=== PATIENT | female | born 1945 | race Caucasian/White ===

== ENCOUNTER 2016-10-02 04:17 | Inpatient (IN) | payer MEDICARE, OTHER ==
[2016-10-02] MEDS ORDERED: methylPREDNISolone NA SUCC 125 MG/2 ML VIAL IVPB ONE (04:45)
[2016-10-02] MEDS ORDERED: METOCLOPRAMIDE HCL INJECTION 10 MG/2 ML VIAL IVPB ONE (04:45)
--- NOTE | 2016-10-02 04:46 | PDOC ---
ED Treatment Course - LABORATORY CBC & Chemistry Diagram: 10/03/16 12:45 10/03/16 12:45 Medical Decision Making - Medical Decision Making 10/02/16 04:45 agree with care from [employer] [facility] [employer] Pool *DC/Admit/Observation/Transfer Diagnosis at time of Disposition: Flank pain, Hydronephrosis - Discharge Dispostion Disposition: HOME Condition at time of disposition: Fair - Prescriptions
[2016-10-02] MEDS ORDERED: methylPREDNISolone NA SUCC 125 MG/2 ML VIAL ONE (04:51)
[2016-10-02] MEDS ORDERED: METOCLOPRAMIDE HCL INJECTION 10 MG/2 ML VIAL ONE (04:51)
--- NOTE | 2016-10-02 04:53 | PDOC ---
[id number]: 10/02/16 04:34 History Source: Patient Exam Limitations: No Limitations - History of Present Illness Travel History: No Initial Comments: 10/02/16 04:49 71 yo Female patient presents to ED c/o abd pain, unable to sleep, nausea, weakness, fatigued x 2-3 weeks. Patient states she went to see Dr. Gallardo yesterday around 4pm and was instructed to come to ED at this time for evaluation of Crohn's. Patient reports she was diagnosed with Crohn's 2005. She also states she took 20 mg of prednisone last night but symptom continue. Denies any other complaints at this time. Timing/Duration: reports: getting worse, changing over time Quality: reports: mild Abdominal Pain Onset Location: reports: generalized abdomen Pain Radiation: reports: no radiation Activities at Onset: reports: no specific activity Treatment Prior to Arrive: improves with: analgesics Aggravating Factors: worse with: None, Defecation, Eating, Emotional upset, Exertion, [place], Movement, Voiding, Change in position Alleviating Factors: worse with: None, Belching, Shallow Breathing, Defecation, Eating, Holding Breath, Passing Gas, Change in Position, Rest, Voiding, Vomiting Past History - Travel Traveled outside of the country in the last 30 days: Yes Close contact w/someone who was outside of country & ill: No - Past Medical History Allergies/Adverse Reactions: Allergies Allergy/AdvReac Type Severity Reaction Status Date / Time codeine [Codeine] Allergy Difficulty Verified 10/02/16 04:48 Breathing morphine Allergy Verified 10/02/16 04:48 Home Medications: Ambulatory Orders Dexlansoprazole [Dexilant -] 60 mg PO DAILY 07/08/12 Mesalamine [Apriso] 0.375 gm PO DAILY 10/02/16 Metoclopramide HCl 5 mg PO TID 10/02/16 Lipase/Protease/Amylase [Rubio Jorge 36,000 Units Capsule] 1 each PO TIDCM #90 capsule. 10/05/16 Cancer: Yes GI Disorders: Yes (CROHNS) HTN: Yes - Surgical History Abdominal Surgery: Yes (INTESTINAL) Cardiac Surgery: Yes (PACEMAKER) - Psycho/Social/Smoking Cessation Hx Suicidal Ideation: No Smoking Status: No Smoking History: Never smoked Number of Cigarettes Smoked Daily: 0 Drug/Substance Use Hx: No Abd/GI Specific PMHX - Complaint Specific PMHX Colitis: No Diverticulitis: No Gall Bladder Disease: No GERD: No Hepatitis: No Irritable Bowel Synd (IBS): No Pancreatitis: No GI Ulcer Disease: No Review of Systems - Review of Systems Constitutional: No: Chills, Fever Respiratory: No: Cough, Orthopnea, Shortness of Breath, Stridor, Wheezing Cardiac (ROS): No: Chest Pain, Edema, Palpitations ABD/GI: Yes: Nausea, Other (Abdominal Pain). No: Constipated, Diarrhea, Poor Appetite, Poor Fluid Intake, Vomiting : No: Burning, Dysuria, Hematuria, Pain Musculoskeletal: No: Back Pain Integumentary: No: Bruising, Rash Neurological: No: Headache, Seizure, Ataxia, Dizziness Psychiatric: Yes: Change in Appetite. No: Stressors Hematologic/Lymphatic: No: Anemia, Blood Clots, Easy Bleeding, Easy Bruising All Other Systems: Reviewed and Negative *Physical Exam - Vital Signs Last Vital Signs Temp Pulse Resp BP Pulse Ox 98.7 F 78 20 162/89 99 10/02/16 04:43 10/02/16 04:43 10/02/16 04:43 10/02/16 04:43 10/02/16 04:43 - Physical Exam General Appearance: Yes: Nourished, Appropriately Dressed. No: Apparent Distress, Disheveled, Mild Distress, Moderate Distress, Severe Distress, Cachetic Neck: positive: Trachea midline, Supple Respiratory/Chest: positive: Lungs Clear, Normal Breath Sounds. negative: Respiratory Distress, Accessory Muscle Use, Labored Respiration, Rapid RR Cardiovascular: positive: Regular Rhythm, Regular Rate Gastrointestinal/Abdominal: positive: Normal Bowel Sounds, Soft. negative: Tender, Increased Bowel Sounds, Distended, Guarding, Rebound, Tenderness Lymphatic: negative: Adenopathy Musculoskeletal: positive: Normal Inspection. negative: CVA Tenderness Extremity: positive: Normal Capillary Refill, Normal Inspection, Normal Range of Motion Integumentary: positive: Normal Color, Warm Neurologic: positive: cargo checker II-XII NML intact, Fully Oriented, Alert, Normal Mood/ Affect, Normal Response, Motor Strength 5/5 ED Treatment Course - LABORATORY CBC & Chemistry Diagram: 10/03/16 12:45 10/03/16 12:45 - RADIOLOGY Radiology Studies Ordered: Category Date Time Status ABDOMEN & PELVIS CT WITH CONTR [CT] Stat CT Scan 10/02/16 04:45 Ordered *DC/Admit/Observation/Transfer Diagnosis at time of Disposition: Flank pain Hydronephrosis Qualifiers: Hydronephrosis type: with ureteropelvic junction obstruction Qualified Code(s) : Q62.0 - Congenital hydronephrosis - Discharge Dispostion Disposition: HOME Condition at time of disposition: Fair - Prescriptions
[2016-10-02] MEDS: SODIUM CHLORIDE 1,000 ML IV SCH ×3 (05:01→22:42)
[2016-10-02 05:24] LABS: BASOPHIL 0.4 % (0-2.0); EOSINOPHIL 0.1 % (0-4.5); MCH 29.5 pg (25.7-33.7); MEAN CELL VOLUME 89.3 fl (80-96); MEAN PLT VOLUME 8.2 fl (7.5-11.1); PLATELET COUNT 280 K/MM3 (134-434); RDW 13.8 % (11.6-15.6); WHITE BLOOD COUNT 6.9 K/mm3 (4.0-10.0)
[2016-10-02 05:43] LABS: AMYLASE 75 U/L (25-115); ANION GAP 10 (8-16); BILIRUBIN,TOTAL 0.2 mg/dL (0.2-1.0); CO2 24 mmol/L (21-32); CREATININE 0.7 mg/dL (0.55-1.02); GLUCOSE,RANDOM 130 mg/dL (74-106); SGOT/AST 23 U/L (15-37); SGPT/ALT 25 U/L (12-78); TOT PROT 7.3 g/dl (6.4-8.2)
[2016-10-02 05:44] LABS: ALK PHOS 96 U/L (45-117)
[2016-10-02 06:34] LABS: URINE APPEARANCE CLEAR; URINE BILIRUBIN NEGATIVE (NEGATIVE); URINE BLOOD NEGATIVE (NEGATIVE); URINE COLOR COLORLESS; URINE GLUCOSE (UA) NEGATIVE (NEGATIVE); URINE KETONE NEGATIVE (NEGATIVE); URINE LEUK ESTERASE NEGATIVE (NEGATIVE); URINE NITRITE NEGATIVE (NEGATIVE); URINE PROTEIN NEGATIVE (NEGATIVE); URINE UROBILINOGEN NEGATIVE E.U./dl (0.2-1.0)
--- NOTE | 2016-10-02 08:08 | PDOC ---
*Physical Exam - Vital Signs Last Vital Signs Temp Pulse Resp BP Pulse Ox 98.3 F 73 18 152/70 100 10/02/16 07:36 10/02/16 07:36 10/02/16 07:36 10/02/16 07:36 10/02/16 07:36 - Physical Exam General Appearance: Yes: Appropriately Dressed. No: Apparent Distress HEENT: positive: Normal Voice Neck: positive: Supple Respiratory/Chest: positive: Lungs Clear, Normal Breath Sounds. negative: Respiratory Distress Cardiovascular: positive: Regular Rate, S1, S2 Gastrointestinal/Abdominal: positive: Soft. negative: Tender Integumentary: positive: Dry, Warm Neurologic: positive: Fully Oriented, Alert, Normal Mood/Affect ED Treatment Course - LABORATORY CBC & Chemistry Diagram: 10/02/16 05:00 10/02/16 05:00 - ADDITIONAL ORDERS Additional order review: Laboratory Results 10/02/16 10/02/16 06:10 05:00 Sodium 140 Potassium 3.8 Chloride 106 Carbon Dioxide 24 Anion Gap 10 BUN 12 Creatinine 0.7 D Creat Clearance w eGFR > 60 Random Glucose 130 H D Calcium 9.0 Total Bilirubin 0.2 D AST 23 D ALT 25 D Alkaline Phosphatase 96 Total Protein 7.3 Albumin 4.0 Total Amylase 75 Lipase 165 Urine Color Colorless Urine Appearance Clear Urine pH 6.0 Ur Specific Hitchcock 1.003 Urine Protein Negative Urine Glucose (UA) Negative Urine Ketones Negative Urine Blood Negative Urine Nitrite Negative Urine Bilirubin Negative Urine Urobilinogen Negative Ur Leukocyte Esterase Negative 10/02/16 05:00 RBC 3.96 MCV 89.3 MCHC 33.0 RDW 13.8 MPV 8.2 Neutrophils % 69.0 D Lymphocytes % 26.0 D Monocytes % 4.5 Eosinophils % 0.1 D Basophils % 0.4 - Medications Given in the ED: ED Medications Discontinued Medications Generic Name Dose Route Start Last Admin Trade Name Freq PRN Reason Stop Dose Admin Methylprednisolone Sodium Succinate 125 mg 10/02/16 04:45 10/02/16 05:01 Solu-Medrol - IVPB 10/02/16 04:46 125 mg ONCE ONE Administration Metoclopramide HCl 10 mg 10/02/16 04:45 10/02/16 05:01 Reglan Injection - IVPB 10/02/16 04:46 10 mg ONCE ONE Administration Medical Decision Making - Medical Decision Making 10/02/16 07:51 Received signout at 7am 71-year-old female history of Crohn's disease on prednisone, presents with abdominal pain. Given IV Solu-Medrol here. Labs unremarkable. CT pending. Patient notes Dr. Fairbanks of GI 10/02/16 08:17 10/02/16 08:20 10/02/16 08:28 CT w/ peripelvic cyst w/ mild prominence of L ureter w/ ? distal urethral stone vfs recent passage of stone, no definate hydro, renal/bladder US recommended. On reassessment, pt report L flank/LUQ pain. Toradol in progress. Discuss dispo w/ Dr Fairbanks 10/02/16 09:[address] Fairbanks who recommended Dr. Steven Tesfaye be c/s on patient given possible stone. States overall, if patient is feeling better, can potentially be discharged. Jerome requesting callback with final disposition [phone] 10/02/16 11:44 Ultrasound read as "findings suggestive of a component of urinary retention w/ narrowing of the ureteropelvic junction with [id number] hydroureter, possibly due to mass effect from the parapelvic cyst". Also seen is small lower pole stone w/ recent stone passage on the L. Pt denies dysuria/retention/ hematuria w/ nl cr in ED. Will contact Dr Steven Tesfaye of as d/w Dr Fairbanks 10/02/16 12:37 Ultrasound findings discussed with Dr. Fairbanks who recommends patient be admitted to Dr. Lantigua especially since pt still symptomatic and now c/o dizziness. Aware that I am still trying to get in contact with 10/02/16 14:25 *DC/Admit/Observation/Transfer Diagnosis at time of Disposition: Flank pain Hydronephrosis Qualifiers: Hydronephrosis type: with ureteropelvic junction obstruction Qualified Code(s) : Q62.0 - Congenital hydronephrosis - Discharge Dispostion Condition at time of disposition: Fair Admit: Yes - Referrals
[2016-10-02] MEDS ORDERED: KETOROLAC TROMETHAMINE 30 MG/1 ML VIAL IVPUSH ONE (08:43)
[2016-10-02] MEDS ORDERED: SODIUM CHLORIDE 1,000 ML IV STA (08:44)
[2016-10-02] MEDS ORDERED: KETOROLAC TROMETHAMINE 15 MG/ML VIAL ONE (09:01)
[2016-10-02 17:33] VITALS: BMI 21.7
--- NOTE | 2016-10-02 18:18 | CONSULT ---
Consult Consult Specialty:: GI Referred by:: Dr Lantigua Reason for Consultation:: Fatigue and abdominal pain - History of Present Illness Chief Complaint: Fatigue and abdominal pain History of Present Illness: 71 F with h/o Crohns diagnosed in 2005 ([facility]) admitted with 2 weeks of abdominal pain and fatigue. She states she took prednisone 20 mg with no relief. She saw Dr Fairbanks yesterday and he sent her to the ER for further evaluation. She denies diarrhea, rectal bleeding. - History Source History Provided By: Patient Limitations to Obtaining History: No Limitations - Past Medical History ...: No - Alcohol/Substance Use Hx Alcohol Use: No - Smoking History Smoking history: Never smoked Have you smoked in the past 12 months: No Aproximately how many cigarettes per day: 0 Home Medications - Allergies Allergies/Adverse Reactions: Allergies Allergy/AdvReac Type Severity Reaction Status Date / Time codeine [Codeine] Allergy Difficulty Verified 10/02/16 04:48 Breathing morphine Allergy Verified 10/02/16 04:48 - Home Medications Home Medications: Ambulatory Orders Dexlansoprazole [Dexilant] 60 mg PO DAILY 07/08/12 Mesalamine [Apriso] 0.375 gm PO DAILY 10/02/16 Metoclopramide HCl 5 mg PO TID 10/02/16 Prednisone 10 mg PO TID 10/02/16 Physical Exam-GI Vital Signs: Vital Signs Temperature 98.4 F 10/02/16 17:10 Pulse Rate 97 H 10/02/16 17:10 Respiratory Rate 18 10/02/16 17:10 Blood Pressure 120/56 10/02/16 17:10 O2 Sat by Pulse Oximetry (%) 99 10/02/16 17:10 Constitutional: Yes: Well Nourished HENT: Yes: Normocephalic Neck: Yes: Supple Cardiovascular: Yes: Regular Rate and Rhythm Respiratory: Yes: CTA Bilaterally Gastrointestinal Inspection: Yes: WNL ...Palpate: Yes: Soft, Tenderness (LLQ) Labs: CBC, BMP 10/02/16 05:00 10/02/16 05:00 Hepatic Panel Total Bilirubin 0.2 mg/dL (0.2-1.0) D 10/02/16 05:00 AST 23 U/L (15-37) D 10/02/16 05:00 ALT 25 U/L (12-78) D 10/02/16 05:00 Alkaline Phosphatase 96 U/L (45-117) 10/02/16 05:00 Albumin 4.0 g/dl (3.4-5.0) 10/02/16 05:00 Imaging - Results Cat Scan: Report Reviewed (nephrolithiasis) Assessment/Plan 71 F with h/o Crohns on prednisone now with fatigue and mild generalized abdominal pain. Exam not impressive. Check ESR and CRP Start diet-she states all she eats is peanut butter, bread and eggs Will try to provide similar food
--- NOTE | 2016-10-02 19:00 | CONSULT ---
Consult Consult Specialty:: urology Referred by:: zofia Reason for Consultation:: left renal colic - History of Present Illness Chief Complaint: abdominal pain History of Present Illness: Patient with history of Crohn's Disease who has a history of abdominal pain with mild left flank pain. Patient with nausea and vomiting but is most likely due to GI source. Patient states that the left flank pain is minor. She denies gross hematuria. - History Source History Provided By: Patient Limitations to Obtaining History: No Limitations - Past Medical History ...: No - Alcohol/Substance Use Hx Alcohol Use: No - Smoking History Smoking history: Never smoked Have you smoked in the past 12 months: No Aproximately how many cigarettes per day: 0 Home Medications - Allergies Allergies/Adverse Reactions: Allergies Allergy/AdvReac Type Severity Reaction Status Date / Time codeine [Codeine] Allergy Difficulty Verified 10/02/16 04:48 Breathing morphine Allergy Verified 10/02/16 04:48 - Home Medications Home Medications: Ambulatory Orders Dexlansoprazole [Dexilant] 60 mg PO DAILY 07/08/12 Mesalamine [Apriso] 0.375 gm PO DAILY 10/02/16 Metoclopramide HCl 5 mg PO TID 10/02/16 Prednisone 10 mg PO TID 10/02/16 Physical Exam- Vital Signs: Vital Signs Temperature 98.4 F 10/02/16 17:10 Pulse Rate 97 H 10/02/16 17:10 Respiratory Rate 18 10/02/16 17:10 Blood Pressure 120/56 10/02/16 17:10 O2 Sat by Pulse Oximetry (%) 99 10/02/16 17:10 Constitutional: Yes: Well Nourished, No Distress, Calm Eyes: Yes: WNL, Conjunctiva Clear, EOM Intact HENT: Yes: Normocephalic Neck: Yes: WNL, Supple, Trachea Midline Cardiovascular: Yes: WNL, Regular Rate and Rhythm Respiratory: Yes: WNL, Regular Gastrointestinal: Yes: Soft (mild diffuse tenderness; no rebound or guarding; mild bilater CVAT) Kidneys: Yes: Tenderness External Genitalia: Yes: WNL Imaging - Results Cat Scan: Report Reviewed Assessment/Plan Impression Crohn's Disease Left UPJ obstruction Plan Observe UPJ which is longstanding.
[2016-10-03] MEDS: SODIUM CHLORIDE 1,000 ML IV SCH ×2 (09:02→23:30)
[2016-10-03 13:36] LABS: BASOPHIL 0.5 % (0-2.0); EOSINOPHIL 0.5 % (0-4.5); MCH 30.6 pg (25.7-33.7); MCHC 33.2 g/dl (32.0-36.0); MEAN CELL VOLUME 92.2 fl (80-96); NEUTROPHILS 48.2 % (42.8-82.8); PLATELET COUNT 244 K/MM3 (134-434); RDW 14.2 % (11.6-15.6); WHITE BLOOD COUNT 8.6 K/mm3 (4.0-10.0)
[2016-10-03 13:47] LABS: ALBUMIN 3.5 g/dl (3.4-5.0); ANION GAP 1 (8-16); CALCIUM 8.6 mg/dL (8.5-10.1); CO2 28 mmol/L (21-32); GLUCOSE,RANDOM 76 mg/dL (74-106)
[2016-10-03 14:02] LABS: ALK PHOS 69 U/L (45-117); BILIRUBIN,TOTAL 0.3 mg/dL (0.2-1.0); C-REACTIVE PROTEIN < 0.3 MG/DL (0.00-0.3); CREATININE 0.7 mg/dL (0.55-1.02); SGOT/AST 16 U/L (15-37); SGPT/ALT 20 U/L (12-78)
[2016-10-04] MEDS: SODIUM CHLORIDE 1,000 ML IV SCH ×3 (04:45→14:42)
--- NOTE | 2016-10-04 15:14 | PN ---
GI Progress Note Subjective: Patient resting comfortably. Diarrhea has resolved. No abdominal pain but (+) bloating. - Objective Vital Signs: Vital Signs Temperature 98.5 F 10/04/16 14:17 Pulse Rate 76 10/04/16 14:17 Respiratory Rate 20 10/04/16 08:00 Blood Pressure 141/66 10/04/16 14:17 O2 Sat by Pulse Oximetry (%) 96 10/04/16 08:00 Constitutional: Well Nourished, No Distress HENT: Yes: Normocephalic Neck: Yes: Supple Cardiovascular: Yes: Regular Rate and Rhythm Respiratory: Yes: CTA Bilaterally Gastrointestinal Inspection: Yes: WNL ...Auscultate: Yes: Normoactive Bowel Sounds ...Palpate: Yes: Soft. No: Tenderness Labs: CBC, BMP 10/03/16 12:45 10/03/16 12:45 - ....Imaging Cat Scan: Report Reviewed (no evidence of crohns) Assessment/Plan 71 F with h/o Crohns on prednisone now with fatigue and mild generalized abdominal pain. Exam not impressive. ESR normal Tolerating diet (peanut butter, bread and eggs) No need for steroids as no evidence of active Crohns at this time Can d/c from GI pov
[2016-10-05] MEDS: SODIUM CHLORIDE 1,000 ML IV SCH ×2 (00:10→06:17)
--- NOTE | 2016-10-05 07:42 | HP ---
Admitting History and Physical - Primary Care Physician PCP: Lalo Lantigua - Admission Chief Complaint: abdominal pain, diarrhea x2-3 days History of Present Illness: was sent in by with c/o diarrhea and worsening abdominal pain with nausea and vomiting to evaluate for active Crohn's. CT abd reviewed, US reviewed was seen by GI and . pt has been on iv fluids, no steroid was given after ER admission. currently feels better, no diarrhea, no vomiting, no nausea. tolerating diet. CT shows no acute inflammation, chronic renal cyst. ESR/CRP within normal. Medically stable to go home with close outpt f/up. (Of note our service was not notified of admission, and was accidentally found admission on computer.) History Source: Patient Limitations to Obtaining History: No Limitations - Past Medical History Cardiovascular: Yes: HTN, Other (PPM for complete heart block) ...: No Rheumatology: Yes: Other (osteoarthritis) - Past Surgical History Past Surgical History: Yes: Hysterectomy (BSO), Permanent Pacemaker, Tonsillectomy Additional Past Surgical History: lumbar surgery intestinal resection for Crohn's/obstruction 2012 - Advance Directives Advance Directives: Yes: Health Care Proxy - Smoking History Smoking history: Never smoked Have you smoked in the past 12 months: No Aproximately how many cigarettes per day: 0 - Alcohol/Substance Use Hx Alcohol Use: No - Social History Usual Living Arrangement: Yes: Alone ADL: Independent History of Recent Travel: No Home Medications - Allergies Allergies/Adverse Reactions: Allergies Allergy/AdvReac Type Severity Reaction Status Date / Time codeine [Codeine] Allergy Difficulty Verified 10/02/16 04:48 Breathing morphine Allergy Verified 10/02/16 04:48 - Home Medications Home Medications: Ambulatory Orders Dexlansoprazole [Dexilant] 60 mg PO DAILY 07/08/12 Mesalamine [Apriso] 0.375 gm PO DAILY 10/02/16 Metoclopramide HCl 5 mg PO TID 10/02/16 Prednisone 10 mg PO TID 10/02/16 Review of Systems - Review of Systems Constitutional: reports: Loss of Appetite Eyes: denies: No Symptoms HENT: denies: No Symptoms Neck: denies: No Symptoms Cardiovascular: denies: No Symptoms Respiratory: denies: No Symptoms Gastrointestinal: reports: Abdominal Pain, Bloating. denies: Diarrhea, Nausea, Vomiting Genitourinary: denies: No Symptoms Musculoskeletal: reports: Back Pain Psychiatric: denies: No Symptoms Physical Examination Vital Signs: Vital Signs Temperature 97.8 F 10/05/16 05:30 Pulse Rate 76 10/05/16 05:30 Respiratory Rate 16 10/05/16 05:30 Blood Pressure 116/56 10/05/16 05:30 O2 Sat by Pulse Oximetry (%) 96 10/04/16 08:00 Constitutional: Yes: Well Nourished, No Distress, Calm Eyes: Yes: EOM Intact HENT: Yes: Normocephalic Neck: Yes: Trachea Midline Cardiovascular: Yes: Regular Rate and Rhythm Respiratory: Yes: CTA Bilaterally Gastrointestinal: Yes: Normal Bowel Sounds, Soft. No: Tenderness, Rebound Renal/: Yes: WNL. No: CVA Tenderness - Left, CVA Tenderness - Right Extremities: Yes: WNL Edema: No Peripheral Pulses WNL: Yes Neurological: Yes: WNL ...Motor Strength: WNL Labs: CBC, BMP 10/03/16 12:45 10/03/16 12:45 Imaging - Results Cat Scan: Report Reviewed Ultrasound: Report Reviewed Problem List - Problems (1) Crohns disease Code(s): K50.90 - CROHN'S DISEASE, UNSPECIFIED, WITHOUT COMPLICATIONS Qualifiers: Digestive disease complication type: without complication (2) Diarrhea Code(s): R19.7 - DIARRHEA, UNSPECIFIED Qualifiers: Diarrhea type: unspecified type Qualified Code(s): R19.7 - Diarrhea , unspecified (3) Abdominal pain Code(s): R10.9 - UNSPECIFIED ABDOMINAL PAIN Qualifiers: Abdominal location: generalized Qualified Code(s): R10.84 - Generalized abdominal pain Assessment/Plan Feels better, medically stable to dc home with oupt GI f/up renal findings d/w pt, she has had long history of parapelvic cyst anwill follow up as outpt add creon to improve digestive issues as d/w
[2016-10-05] MEDS ORDERED: PATIENT'S OWN MEDICATION (NON-FORMULARY) (Mesalamine [Apriso] 0.375 GM) PO SCH (10:00)
[2016-10-05] MEDS: LIPASE/PROTEASE/AMYLASE 6,000 UNIT CAPSULE PO SCH ×2 (10:16→10:39)
[2016-10-05] MEDS: PANTOPRAZOLE 40 MG TABLET (FP) PO SCH ×2 (10:16→10:40)
[2016-10-05 10:45] VITALS: BP 126/72; PULSE 73; TEMP 98.1
[2016-10-05] MEDS ORDERED: METOCLOPRAMIDE HCL 10 MG TABLET (FP) PO SCH (14:00)
--- NOTE | 2016-10-23 08:52 | DS ---
Physical Examination Vital Signs: Vital Signs Temperature 98.1 F 10/05/16 08:00 Pulse Rate 73 10/05/16 08:00 Respiratory Rate 20 10/05/16 08:00 Blood Pressure 126/72 10/05/16 08:00 O2 Sat by Pulse Oximetry (%) 96 10/05/16 08:00 Labs: CBC, BMP 10/03/16 12:45 10/03/16 12:45 Discharge Summary Reason For Visit: FLANK PAIN,HYDRONEPHROSIS Hospital Course: was sent in by with c/o diarrhea and worsening abdominal pain with nausea and vomiting to evaluate for active Crohn's. CT abd reviewed, US reviewed was seen by GI and . pt has been on iv fluids, no steroid was given after ER admission. currently feels better, no diarrhea, no vomiting, no nausea. tolerating diet. CT shows no acute inflammation, chronic renal cyst. ESR/CRP within normal. Medically stable to go home with close outpt f/up. Condition: Fair - Instructions Diet, Activity, Other Instructions: FOLLOW UP WITH GI DR FAIRBANKS IN 1 WEEK FOLLOW UP WITH YOUR PMD DR LIANG Referrals: Benjamin Fairbanks MD [Primary Care Provider] - Disposition: HOME - Home Medications Comprehensive Discharge Medication List: Ambulatory Orders Dexlansoprazole [Dexilant -] 60 mg PO DAILY 07/08/12 Mesalamine [Apriso] 0.375 gm PO DAILY 10/02/16 Metoclopramide HCl 5 mg PO TID 10/02/16 Lipase/Protease/Amylase [Rubio Jorge 36,000 Units Capsule] 1 each PO TIDCM #90 capsule. 10/05/16
== END 2016-10-05 11:58 | disposition home or self-care (01) | DRG 392 ==
LOC: JER 04:17 → JERBED 12:43 → J6S 15:30
PROVIDERS: ADMIT Internal Medicine; ATTEND Internal Medicine
DX: R10.84 Generalized abdominal pain (principal); K50.90 Crohn's disease, unspecified, without complications; N13.39 Other hydronephrosis; R19.7 Diarrhea, unspecified; N94.89 Other specified conditions associated with female genital organs and menstrual cycle; N20.0 Calculus of kidney
CPT/HCPCS: 36415; 74176-TC; 76775-TC; 76856-TC; 80053; 81003; 82150; 83690; 85025; 85651; 86140; 99283-25

== ENCOUNTER 2017-06-28 07:31 | Day surgery (SDC) | payer MEDICARE, OTHER ==
[2017-06-28] MEDS ORDERED: IRON SUCROSE INJECTION 100 MG in SODIUM CHLORIDE 100 ML IVPB ONE (08:00)
[2017-06-28 17:26] VITALS: BP 136/64; PULSE 77; TEMP 98.8
== END 2017-06-28 15:00 | disposition home or self-care (01) ==
LOC: JONCNONCHE 07:31 → J7W 13:40 → JONCNONCHE 15:00
PROVIDERS: ATTEND Internal Medicine Hematology & Oncology
PROC: 3E033GC Introduction of Other Therapeutic Substance into Peripheral Vein, Percutaneous Approach (ICD-10-PCS; principal; 2017-06-28)
DX: D50.9 Iron deficiency anemia, unspecified (principal)
CPT/HCPCS: 96365; J1756

== ENCOUNTER 2017-12-31 07:32 | Day surgery (SDC) | payer MEDICARE, OTHER ==
[2017-12-31] MEDS ORDERED: IRON SUCROSE INJECTION 200 MG in SODIUM CHLORIDE 100 ML IVPB ONE (09:00)
[2017-12-31 10:43] VITALS: BP 117/67; PULSE 85; TEMP 97.1
== END 2017-12-31 10:44 | disposition home or self-care (01) ==
LOC: JONCNONCHE 07:32 → J7W 09:22 → JONCNONCHE 10:44
PROVIDERS: ATTEND Internal Medicine Hematology & Oncology
PROC: 3E033GC Introduction of Other Therapeutic Substance into Peripheral Vein, Percutaneous Approach (ICD-10-PCS; principal; 2017-12-31)
DX: D50.9 Iron deficiency anemia, unspecified (principal)
CPT/HCPCS: 96365; J1756

== ENCOUNTER 2018-06-23 07:35 | Day surgery (SDC) | payer MEDICARE, OTHER ==
[2018-06-23] MEDS ORDERED: IRON SUCROSE INJECTION 200 MG in SODIUM CHLORIDE 100 ML IVPB ONE (10:00)
[2018-06-23 16:37] VITALS: BP 120/59; PULSE 76; TEMP 98.1
== END 2018-06-23 10:35 | disposition home or self-care (01) ==
LOC: JONCNONCHE 07:35 → J7W 09:12 → JONCNONCHE 10:35
PROVIDERS: ATTEND Internal Medicine Hematology & Oncology
PROC: 3E033GC Introduction of Other Therapeutic Substance into Peripheral Vein, Percutaneous Approach (ICD-10-PCS; principal; 2018-06-23)
DX: D50.9 Iron deficiency anemia, unspecified (principal)
CPT/HCPCS: 96365; J1756

== ENCOUNTER 2018-11-08 05:40 | Day surgery (SDC) | payer MEDICARE, OTHER ==
[2018-11-08] MEDS ORDERED: IRON SUCROSE INJECTION 200 MG in SODIUM CHLORIDE 100 ML IVPB ONE (12:00)
[2018-11-08 16:32] VITALS: TEMP 98.1
[2018-11-08 16:33] VITALS: BP 132/89; PULSE 89
== END 2018-11-08 15:45 | disposition home or self-care (01) ==
LOC: JONCNONCHE 05:40 → JONCCHEMO 05:40 → J7W 08:35 → JONCNONCHE 15:45
PROVIDERS: ATTEND Internal Medicine Hematology & Oncology
DX: D50.9 Iron deficiency anemia, unspecified (principal)
CPT/HCPCS: 96365; J1756

== ENCOUNTER 2018-11-15 07:17 | Day surgery (SDC) | payer MEDICARE, OTHER ==
[2018-11-15] MEDS ORDERED: IRON SUCROSE INJECTION 200 MG in SODIUM CHLORIDE 100 ML IVPB ONE (09:00)
[2018-11-15 15:54] VITALS: TEMP 98.3
[2018-11-15 15:55] VITALS: BP 145/53; PULSE 82
== END 2018-11-15 14:15 | disposition home or self-care (01) ==
LOC: JONCNONCHE 07:17 → J7W 13:17 → JONCNONCHE 14:15
PROVIDERS: ATTEND Internal Medicine Hematology & Oncology
PROC: 3E033GC Introduction of Other Therapeutic Substance into Peripheral Vein, Percutaneous Approach (ICD-10-PCS; principal; 2018-11-15)
DX: D50.9 Iron deficiency anemia, unspecified (principal)
CPT/HCPCS: 96365; J1756

== ENCOUNTER 2018-11-22 07:07 | Day surgery (SDC) | payer MEDICARE, OTHER ==
[2018-11-22] MEDS ORDERED: IRON SUCROSE INJECTION 200 MG in SODIUM CHLORIDE 100 ML IVPB ONE (12:00)
[2018-11-22 16:35] VITALS: TEMP 98.2
[2018-11-22 16:36] VITALS: BP 128/66; PULSE 74
== END 2018-11-22 14:44 | disposition home or self-care (01) ==
LOC: JONCCHEMO 07:07 → JONCNONCHE 07:07 → J7W 13:26 → JONCNONCHE 14:44
PROVIDERS: ATTEND Internal Medicine Hematology & Oncology
PROC: 3E033GC Introduction of Other Therapeutic Substance into Peripheral Vein, Percutaneous Approach (ICD-10-PCS; principal; 2018-11-22)
DX: D50.9 Iron deficiency anemia, unspecified (principal)
CPT/HCPCS: 96365; J1756

== ENCOUNTER 2018-11-28 07:16 | Day surgery (SDC) | payer MEDICARE, OTHER ==
[2018-11-25 10:03] VITALS: BMI 20.9
[2018-11-28] MEDS ORDERED: MIDAZOLAM HCL 2 MG/2 ML SINGLE DOSE VIAL ONE (08:56)
[2018-11-28] MEDS ORDERED: PROPOFOL 20 ML ONE (09:01)
[2018-11-28] MEDS ORDERED: SUCCINYLCHOLINE CHLORIDE 200 MG/10 ML VIAL ONE (09:01)
[2018-11-28] MEDS ORDERED: IOHEXOL 300 MG/ML INFUS..BTL IV ONE (09:11)
[2018-11-28] MEDS ORDERED: ONDANSETRON 4 MG/2 ML VIAL IVPUSH PRN (09:43)
[2018-11-28] MEDS ORDERED: LACTATED RINGERS SOLUTION 1,000 ML IV SCH (09:45)
--- NOTE | 2018-11-28 10:11 | OP ---
Operative Note - Note: Operative Date: 11/28/18 Pre-Operative Diagnosis: left hydronephrosis with obstruction Operation: cystoscopy/left retrograde pyelogram/left ureteroscopy Findings: no evidence of ureteral stone/mild left upj obstruction with parapelvic cysts Post-Operative Diagnosis: Same as Pre-op Surgeon: Junior Chatterjee Anesthesia: General Operative Report Dictated: Yes
[2018-11-28 11:08] VITALS: TEMP 97.3
[2018-11-28 11:28] VITALS: BP 112/59; PULSE 81
--- NOTE | 2018-11-29 07:17 | OP ---
DATE OF OPERATION: 11/28/2018 PREOPERATIVE DIAGNOSIS: Left hydronephrosis with obstruction. POSTOPERATIVE DIAGNOSIS: Mild left ureteropelvic junction obstruction and multiple parapelvic cysts of the left kidney. PROCEDURE: Cystoscopy, left retrograde pyelogram, left ureteroscopy. ATTENDING: Ajay Mckinney MD ANESTHESIA: General. OPERATION WAS FOLLOWS: The patient has a history of a hydronephrosis on the left side with a renal scan indicative of left obstruction. Patient has a question of a stone in the ureter. Patient understands all risks and benefits of the procedure. She was brought into the operating room, placed in supine position on the operating room table. Preoperative antibiotics and anesthesia were administered. Patient was then placed in the dorsal lithotomy position. She was prepped and draped in the usual sterile manner. Cystoscopy was performed. Then, 2+ bladder trabeculations were noted. No evidence of neoplasm or stones within the bladder were noted. A retrograde pyelogram was performed which showed distorted left pyelocaliceal cysts of the left kidney consistent with the parapelvic cysts. A mild ureteropelvic junction obstruction was noted. There was a filling defect in the distal left ureter. Ureteroscopy was performed of the distal left ureter. No evidence of stone or neoplasm was noted. No stent was left in place. The patient tolerated the procedure very well. There were no complications noted. The disposition of the patient was to the recovery room. AJAY MCKINNEY M.D. [id number]
== END 2018-11-28 11:30 | disposition home or self-care (01) ==
LOC: JASU-SURG 07:16
PROVIDERS: ATTEND Urology
PROC: BT1FYZZ Fluoroscopy of Left Kidney, Ureter and Bladder using Other Contrast (ICD-10-PCS; principal; 2018-11-28 09:00)
DX: N13.39 Other hydronephrosis (principal); N28.1 Cyst of kidney, acquired; N32.89 Other specified disorders of bladder
CPT/HCPCS: 76000-TC-FY; 94760

== ENCOUNTER 2018-12-06 08:31 | Day surgery (SDC) | payer MEDICARE, OTHER ==
[2018-12-06] MEDS ORDERED: IRON SUCROSE INJECTION 200 MG in SODIUM CHLORIDE 100 ML IVPB ONE (10:00)
[2018-12-06 15:23] VITALS: BP 130/70; PULSE 77; TEMP 97.9
== END 2018-12-06 11:30 | disposition home or self-care (01) ==
LOC: JONCNONCHE 08:31 → J7W 11:32
PROVIDERS: ATTEND Internal Medicine Hematology & Oncology
PROC: 3E033GC Introduction of Other Therapeutic Substance into Peripheral Vein, Percutaneous Approach (ICD-10-PCS; principal; 2018-12-06)
DX: D50.9 Iron deficiency anemia, unspecified (principal)
CPT/HCPCS: 96365; J1756

== ENCOUNTER 2018-12-13 07:06 | Day surgery (SDC) | payer MEDICARE, OTHER ==
[2018-12-13] MEDS ORDERED: IRON SUCROSE INJECTION 200 MG in SODIUM CHLORIDE 100 ML IVPB ONE (10:00)
[2018-12-13 16:03] VITALS: TEMP 98.3
[2018-12-13 16:07] VITALS: BP 129/57; PULSE 74
== END 2018-12-13 14:20 | disposition home or self-care (01) ==
LOC: JONCCHEMO 07:06 → JONCNONCHE 07:06 → J7W 13:18 → JONCNONCHE 14:20
PROVIDERS: ATTEND Internal Medicine Hematology & Oncology
PROC: 3E033GC Introduction of Other Therapeutic Substance into Peripheral Vein, Percutaneous Approach (ICD-10-PCS; principal; 2018-12-13)
DX: D50.9 Iron deficiency anemia, unspecified (principal)
CPT/HCPCS: 96365; J1756

== ENCOUNTER → 2019-03-06 | Day surgery (SDC) | payer MEDICARE, OTHER | LOC: JONCNONCHE 06:19 ==

== ENCOUNTER 2019-03-10 06:41 | Day surgery (SDC) | payer MEDICARE, OTHER ==
[2019-03-10] MEDS ORDERED: IRON SUCROSE INJECTION 200 MG in SODIUM CHLORIDE 100 ML IVPB ONE (09:45)
[2019-03-10 13:52] VITALS: BP 142/70; PULSE 90; TEMP 98
== END 2019-03-10 11:20 | disposition home or self-care (01) ==
LOC: JONCNONCHE 06:41 → J7W 09:37 → JONCNONCHE 11:20
PROVIDERS: ATTEND Internal Medicine Hematology & Oncology
PROC: 3E033GC Introduction of Other Therapeutic Substance into Peripheral Vein, Percutaneous Approach (ICD-10-PCS; principal; 2019-03-10)
DX: D50.9 Iron deficiency anemia, unspecified (principal)
CPT/HCPCS: 96365; J1756

== ENCOUNTER 2020-06-01 13:19 | Emergency (ER) | payer MEDICARE, OTHER ==
[2020-06-01 13:31] VITALS: BMI 20.8
--- NOTE | 2020-06-01 14:17 | PDOC ---
Attending Attestation - Resident Resident Name: Gage Manzo - HPI HPI: 06/01/20 16:26 Pt presents to the ED complaining of a 5 day history of diarrhea and intermittent abdominal pain. Denies fever, nausea or vomiting. Patient has a history of Chron's disease. States that her Chron's is usually controlled with medication prescribed by Dr. Fairbanks, but today, these medications did not help her. Patient reports no diarrhea today, although she states that she has not eaten for two days. 06/01/20 17:02 - Physicial Exam PE: 06/01/20 16:41 Agree with resident exam. Patient is alert and oriented and in no acute distress. Abdomen is soft, non tender, non distended, without guarding or rebound. Agree with resident exam. Patient is alert and oriented and in no acute distress. Abdomen is soft, non distended with mild diffuse tenderness without guarding or rebound. 06/01/20 17:00 06/10/20 07:28 - Medical Decision Making 06/01/20 17:01 Pt presents to the ED complaining of abdominal pain and profuse diarrhea. Differential includes chron's flare, infectious diarrhea, less likely abscess, diverticulitis, intestinal obstruction. Will check labs and CT abdomen, reassess. 06/01/20 17:02 Discharge - Discharge Information Problems reviewed: Yes Clinical Impression/Diagnosis: Abdominal pain Qualifiers: Abdominal location: generalized Qualified Code(s): R10.84 - Generalized abdominal pain Disposition: HOME - Follow up/Referral Referrals: Lalo Lantigua MD [Primary Care Provider] - Pavel Goodman MD [Staff Physician] - - Patient Discharge Instructions Patient Printed Discharge Instructions: DI for Crohns Disease Flare Additional Instructions: You came to the ED today because of abdominal pain, distention, and diarrhea. All of your labs came back ok. Your CT scan also came back fine. Follow-up with Dr. Fairbanks on Wednesday. Please return to the ED if you have any new or concerning symptoms. Return to the ED if you develop a fever, or have persistent vomiting. - Post Discharge Activity
--- NOTE | 2020-06-01 14:33 | PDOC ---
History of Present Illness - General Chief Complaint: Pain, Acute Stated Complaint: ABD PAIN Time Seen by Provider: 06/01/20 14:14 History Source: Patient Exam Limitations: No Limitations - History of Present Illness Initial Comments: 06/01/20 16:59 75F [facility] crohns sent to ED by Dr. Fairbanks for evaluation of 3 days of diarrhea, colicky abdominal pain, nausea, and bloating. Pt states she had several episodes of nonbloody watery diarrhea on 05/29/20 followed by days of bloating, colicky pain, and nausea. Has been PO tolerant. Denies fevers/chills. Prior abdominal surgery for crohns flare up? Has a cough she attributes to environmental allergies. Past History - Medical History Allergies/Adverse Reactions: Allergies Allergy/AdvReac Type Severity Reaction Status Date / Time codeine [Codeine] Allergy Difficulty Verified 06/01/20 13:23 Breathing morphine Allergy Verified 06/01/20 13:23 amoxicillin AdvReac Verified 06/01/20 13:23 iv contrast AdvReac Rash Uncoded 06/01/20 13:23 Home Medications: Ambulatory Orders Dexlansoprazole [Dexilant -] 60 mg PO DAILY 07/08/12 Alprazolam [Xanax] 1 mg PO PRN 11/25/18 Azathioprine [Azasan] 75 mg PO DAILY 06/01/20 Anemia: Yes Asthma: No Cancer: Yes Cardiac Disorders: Yes (pacemarker) CVA: No COPD: No CHF: No Dementia: No Diabetes: No GI Disorders: Yes (CROHNS) Disorders: No HTN: Yes Hypercholesterolemia: No Liver Disease: No Seizures: No Thyroid Disease: No - Surgical History Abdominal Surgery: Yes (INTESTINAL) Appendectomy: No Cardiac Surgery: Yes (PACEMAKER) Cholecystectomy: No Lung Surgery: No Neurologic Surgery: No Orthopedic Surgery: Yes (L knee) - Psycho-Social/Smoking History Smoking Status: No Smoking History: Unknown if ever smoked Have you smoked in the past 12 months: No Number of Cigarettes Smoked Daily: 0 - Substance Abuse Hx (Audit-C & DAST Scrn) How often the patient has a drink containing alcohol: Never Score: In Men: 4 or > Positive; In Women: 3 or > Positive: 0 Screen Result (Pos requires Nsg. Audit-10AR): Negative In the last yr the pt used illegal drug/Rx for NonMed reason: No Score: Yes response is considered Positive: 0 Screen Result (Positive result requires Nsg. DAST-10): Negative Review of Systems - Review of Systems Comments:: CONSTITUTIONAL: Denies F / C HEENT: Denies headache, lightheadedness, dizziness, changes in vision / hearing, diplopia, blurry vision, sore throat, rhinorrhea RESP: Denies SOB, cough, orthopnea, PERAZA CARD: Denies chest pain, palpitations GI: Denies N / V / D, abdominal pain, bloody stool, inability to tolerate PO : Denies dysuria, hematuria, frequency NEURO: Denies numbness, tingling, weakness MSK: Denies back pain SKIN: Denies rashes *Physical Exam - Vital Signs Last Vital Signs Temp Pulse Resp BP Pulse Ox 84 18 146/80 100 06/01/20 13:26 06/01/20 13:26 06/01/20 13:26 06/01/20 13:26 - Physical Exam GEN: Well appearing, NAD, comfortable. AAOx3. HEENT: NC/AT, EOMI, PERRL. No facial asymmetry. Normal voice. Supple neck w/ FROM. CV: S1/S2, RRR, no m/r/g LUNG: CTAB, no wheezes, crackles, rales, rhonchi. GI: Soft, nontender, mild distention, +BS, no guarding, no rebound MSK: No obvious deformities of all extremities. SKIN: Warm, dry, no rashes appreciated. PSYCH: Normal mood and affect. NEURO: Moving all extremities well. ED Treatment Course - LABORATORY CBC & Chemistry Diagram: 06/01/20 15:20 06/01/20 15:20 Medical Decision Making - Medical Decision Making 75F w/ diarrhea followed by bloating, colicky pain, and nausea. well appearing w/ benign exam. Will eval for colitis, abscess - cbc, cmp - CT A/P 06/01/20 19:00 labs reviewed and reassuring pending CT read Pt signed out to PM team for further management and dispo Discharge - Discharge Information Problems reviewed: Yes Clinical Impression/Diagnosis: Abdominal pain Qualifiers: Abdominal location: generalized Qualified Code(s): R10.84 - Generalized abdominal pain Disposition: HOME - Follow up/Referral Referrals: Lalo Lantigua MD [Primary Care Provider] - Pavel Goodman MD [Staff Physician] - - Patient Discharge Instructions Patient Printed Discharge Instructions: DI for Crohns Disease Flare Additional Instructions: You came to the ED today because of abdominal pain, distention, and diarrhea. All of your labs came back ok. Your CT scan also came back fine. Follow-up with Dr. Fairbanks on Wednesday. Please return to the ED if you have any new or concerning symptoms. Return to the ED if you develop a fever, or have persistent vomiting. - Post Discharge Activity
[2020-06-01 15:57] LABS: BASO % 0.7 % (0-2.0); EOS % 0.9 % (0-4.5); HEMATOCRIT 35.7 % (32.4-45.2); LYMPH % 32.9 % (8-40); MCH 30.6 pg (25.7-33.7); MCHC 33.6 g/dl (32.0-36.0); MEAN CELL VOLUME 91.3 fl (80-96); MEAN PLT VOLUME 7.9 fl (7.5-11.1); MONO % 7.1 % (3.8-10.2); NEUT % 58.4 % (42.8-82.8); PLATELET COUNT 209 K/MM3 (134-434); RBC 3.91 M/mm3 (3.60-5.2); RDW 13.7 % (11.6-15.6); WHITE BLOOD COUNT 5.4 K/mm3 (4.0-10.0)
[2020-06-01 16:24] LABS: ALBUMIN 3.8 g/dl (3.4-5.0); BILIRUBIN,TOTAL 0.3 mg/dL (0.2-1); BLOOD UREA NITROGEN 12.4 mg/dL (7-18); CALCIUM 8.9 mg/dL (8.5-10.1); CREATININE 0.8 mg/dL (0.55-1.3); POTASSIUM 3.9 mmol/L (3.5-5.1); TOT PROT 7.1 g/dl (6.4-8.2)
[2020-06-01 18:32] VITALS: BP 119/45; PULSE 69
--- NOTE | 2020-06-01 19:30 | PDOC ---
*Physical Exam - Vital Signs Last Vital Signs Temp Pulse Resp BP Pulse Ox 69 20 119/45 L 99 06/01/20 18:31 06/01/20 18:31 06/01/20 18:31 06/01/20 18:31 ED Treatment Course - LABORATORY CBC & Chemistry Diagram: 06/01/20 15:20 06/01/20 15:20 - ADDITIONAL ORDERS Additional order review: Laboratory Results 06/01/20 15:20 Sodium 139 Potassium 3.9 Chloride 104 Carbon Dioxide 29 Anion Gap 7 L BUN 12.4 Creatinine 0.8 Est GFR (CKD-EPI)AfAm 82.42 Est GFR (CKD-EPI)NonAf 71.11 Random Glucose 90 Calcium 8.9 Total Bilirubin 0.3 AST 30 ALT 26 Alkaline Phosphatase 121 H Total Protein 7.1 Albumin 3.8 06/01/20 15:20 RBC 3.91 MCV 91.3 MCHC 33.6 RDW 13.7 MPV 7.9 Neutrophils % 58.4 Lymphocytes % 32.9 Monocytes % 7.1 Eosinophils % 0.9 Basophils % 0.7 Medical Decision Making - Medical Decision Making 06/01/20 19:27 Patient signed out to me 75 y/o female with a hax of Crohns complaining of diarrhea on Wednesday, none since. She has had residual abdominal cramping, bloating and nausea. She states this is the same as her normal crohns flare-ups. Dr. Fairbanks tried a few medications for flare-ups without improvement and wanted her to come in to be checked for infectious colitis. 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 - Will d/c will follow up and return precautions Discharge - Discharge Information Problems reviewed: Yes Clinical Impression/Diagnosis: Abdominal pain Qualifiers: Abdominal location: generalized Qualified Code(s): R10.84 - Generalized abdominal pain Disposition: HOME - Admission No - Follow up/Referral Referrals: Lalo Lanitgua MD [Primary Care Provider] - Pavel Goodman MD [Staff Physician] - - Patient Discharge Instructions Patient Printed Discharge Instructions: DI for Crohns Disease Flare Additional Instructions: You came to the ED today because of abdominal pain, distention, and diarrhea. All of your labs came back ok. Your CT scan also came back fine. Follow-up with Dr. Fairbanks on Wednesday. Please return to the ED if you have any new or concerning symptoms. Return to the ED if you develop a fever, or have persistent vomiting. - Post Discharge Activity
== END 2020-06-01 20:06 | disposition home or self-care (01) ==
LOC: JER 13:19
DX: R10.84 Generalized abdominal pain (principal)
CPT/HCPCS: 36415; 74176-TC; 80053; 85025; 99285-25

== ENCOUNTER 2021-12-12 15:34 | Emergency (ER) | payer MEDICARE, OTHER ==
[2021-12-12 15:53] VITALS: TEMP 97.6; BMI 19.3
[2021-12-12] MEDS ORDERED: MAG HYDROX/AL HYDROX/SIMETH 30 ML UNIT-DOSE CUP PO ONE (17:27)
[2021-12-12] MEDS ORDERED: FAMOTIDINE 20 MG/50 ML IVPB 20 MG/50 ML MG IVPB ONE ×2 (17:27→18:31)
[2021-12-12] MEDS ORDERED: SODIUM CHLORIDE 0.9% 500 ML INFUS.BAG IV ONE (17:27)
[2021-12-12] MEDS ORDERED: MAG HYDROX/AL HYDROX/SIMETH 30 ML UNIT-DOSE CUP ONE (18:31)
[2021-12-12 18:51] LABS: BASO % 0.7 % (0-2.0); EOS % 0.4 % (0-4.5); HEMATOCRIT 36.2 % (32.4-45.2); HEMOGLOBIN 12.5 GM/dL (10.7-15.3); LYMPH % 27.3 % (8-40); MCHC 34.4 g/dl (32.0-36.0); MEAN PLT VOLUME 7.5 fl (7.5-11.1); NEUT % 65.6 % (42.8-82.8); PLATELET COUNT 266 10^3/uL (134-434); RBC 4.03 M/mm3 (3.60-5.2); RDW 13.4 % (11.6-15.6); WHITE BLOOD COUNT 5.8 K/mm3 (4.0-10.0)
[2021-12-12 19:00] LABS: INR 1.34 (0.83-1.09); PROTHROMBIN TIME (PATIENT) 15.5 SEC (9.7-13.0)
[2021-12-12 19:02] LABS: ACTIVATED PTT 37.9 SECONDS (25.2-36.5)
[2021-12-12 19:11] LABS: ALBUMIN 4.2 g/dl (3.4-5.0); CALCIUM 9.7 mg/dL (8.5-10.1)
[2021-12-12 19:12] LABS: BLOOD UREA NITROGEN 14.1 mg/dL (7-18); MAGNESIUM 2.2 mg/dL (1.8-2.4)
[2021-12-12 19:15] LABS: CREATININE 0.7 mg/dL (0.55-1.3)
[2021-12-12 19:16] LABS: BILIRUBIN,TOTAL 0.3 mg/dL (0.2-1); TOT PROT 7.7 g/dl (6.4-8.2)
[2021-12-12 20:50] LABS: PH,URINE 6.5 (5.0-8.0); URINE APPEARANCE CLEAR; URINE BILIRUBIN NEGATIVE (NEGATIVE); URINE COLOR YELLOW; URINE GLUCOSE (UA) NEGATIVE (NEGATIVE); URINE KETONE NEGATIVE (NEGATIVE); URINE LEUK ESTERASE NEGATIVE (NEGATIVE); URINE NITRITE NEGATIVE (NEGATIVE); URINE PROTEIN NEGATIVE (NEGATIVE); URINE UROBILINOGEN 0.2 mg/dL (0.2-1.0)
[2021-12-12 21:48] VITALS: BP 126/65; PULSE 72
== END 2021-12-12 22:08 | disposition home or self-care (01) ==
LOC: JER 15:34
PROC: 3E033GC Introduction of Other Therapeutic Substance into Peripheral Vein, Percutaneous Approach (ICD-10-PCS; principal; 2021-12-12)
DX: K50.90 Crohn's disease, unspecified, without complications (principal)
CPT/HCPCS: 36415; 71045-TC-FY; 74176-TC; 80053; 81003; 83690; 83735; 84484; 85025; 85610; 85730; 86850; 86900; 86901; 87086; 93005; 93010; 96365; 99285-25